=== PATIENT | female | born 1965 | race Caucasian/White ===

== ENCOUNTER 2020-04-24 12:14 | Emergency (ER) | payer MEDICAID, OTHER ==
--- NOTE | 2020-04-24 13:35 | EDM.PDOC ---
ED HPI GENERAL MEDICAL PROBLEM - General Chief Complaint: Lower Extremity Injury/Pain Stated Complaint: POSSIBLE BLOOD CLOT IN LEG Time Seen by Provider: 04/24/20 12:35 Source of Information: Reports: Patient, RN, RN Notes Reviewed History Limitations: Reports: No Limitations - History of Present Illness INITIAL COMMENTS - FREE TEXT/NARRATIVE: Had a LTK done 04/16/[address] Elias at [facility]. Today pt. states she has been having "excruciating" pain that starts from both side of her calf and goes around to the front of her bazan. Hurts to even touch it. Called her Orthopedic office and was told to come in to be evaluated. Pt. states she is worried about a blood clot. Is on ellequis bid and has taken today, has not missed any doses. Does have redness to bazan that pt. states started 3 days ago. has had drainage from her incision and was evaluated 04/22/2020 in [place], a culture of drainage was taken. Is not on antibiotics. Has bruising knee and calf but pt. states it has not worsened. Onset: Gradual Duration: Day(s): (4-5), Constant Location: Reports: Lower Extremity, Left Quality: Reports: Ache, Pressure, Throbbing Severity: Severe Improves with: Reports: None Worsens with: Reports: Movement Context: Reports: Other (Postoperative pain) Associated Symptoms: Reports: No Other Symptoms Left Lower Leg Pain Score (Numeric/FACES): 10 - Related Data Allergies Allergy/AdvReac Type Severity Reaction Status Date / Time adhesive Allergy Blisters Verified 04/24/20 12:33 cephalexin [From Keflex] Allergy Itching Verified 04/24/20 12:33 coconut Allergy Itching Verified 04/24/20 12:33 Past Medical History Musculoskeletal History: Reports: Osteoarthritis Endocrine/Metabolic History: Reports: Obesity/BMI 30+ - Past Surgical History Musculoskeletal Surgical History: Reports: Knee Replacement (Left), Other (See Below) (Left knee surgery x2 prior to TKR.) Social & Family History - Family History Family Medical History: Noncontributory - Living Situation & Occupation Living situation: Reports: with Family Review of Systems - Review of Systems Review Of Systems: Comprehensive ROS is negative, except as noted in HPI. ED EXAM, GENERAL - Physical Exam Exam: See Below Exam Limited By: No Limitations General Appearance: Alert, WD/WN, No Apparent Distress, Obese Respiratory/Chest: No Respiratory Distress, Lungs Clear, Normal Breath Sounds, No Accessory Muscle Use, Chest Non-Tender Cardiovascular: Normal Peripheral Pulses, Regular Rate, Rhythm Extremities: Joint Swelling (Left knee incision is clean and dry, bulla that appears to be a reaction to the adhesive from the dressing is present, the bulla are intact with clear fluid. Left knee tender with postoperative swelling and bruising to the proximal ankle. There is erythema to the anterior bazan.), Limited Range of Motion (Left knee, as expected postoperatively) Neurological: Alert, Oriented, No Motor/Sensory Deficits Psychiatric: Normal Mood Course - Vital Signs Last Recorded V/S: Last Vital Signs Temp 97 F 04/24/20 12:26 Pulse 93 04/24/20 12:26 Resp 16 04/24/20 12:26 BP 122/48 L 04/24/20 12: Pulse Ox 95 04/24/20 12:26 - Orders/Labs/Meds Labs: Laboratory Tests 04/24/20 Range/Units 13:35 WBC 10.7 H (5.0-10.0) 10^3/uL RBC 4.19 L (4.2-5.4) 10^6/uL Hgb 12.7 (12.0-16.0) g/dL Hct 39.1 (37.0-47.0) % MCV 93.3 (80-100) fL MCH 30.3 (27.0-34.0) pg MCHC 32.5 L (33.0-35.0) g/dL Plt Count 361 (150-450) 10^3/uL Neut % (Auto) 73.1 (42.2-75.2) % Lymph % (Auto) 15.1 L (20.5-50.1) % Chase % (Auto) 7.9 (2-8) % Eos % (Auto) 3.6 H (1.0-3.0) % Baso % (Auto) 0.3 (0.0-1.0) % - Radiology Interpretation Free Text/Narrative:: US Left Lower extremity venous doppler: no DVT, postoperative fluid/hematoma, see Rad. report. Departure - Departure Time of Disposition: 13:53 Disposition: Home, Self-Care 01 Condition: Good Clinical Impression: Postoperative pain of left knee - Discharge Information *PRESCRIPTION DRUG MONITORING PROGRAM REVIEWED*: Not Applicable *COPY OF PRESCRIPTION DRUG MONITORING REPORT IN PATIENT NUBIA: Not Applicable Instructions: Total Knee Replacement, Care After, [id number] Forms: ED Department Discharge Additional Instructions: Continue to follow your surgical discharge instructions. Follow up with your surgeon April 29. Call or follow up sooner if pain increases, redness increased, drainage returns, or if you develop a fever. Sepsis Event Note (ED) - Evaluation Sepsis Screening Result: No Definite Risk - Focused Exam Vital Signs: Vital Signs Temp Pulse Resp BP Pulse Ox 04/24/20 12:26 97 F 93 16 122/48 L 95
--- NOTE | 2020-04-24 14:12 | US ---
EXAMINATION: Venous Doppler lower Ext Lt SEX: Female AGE: 54 years CLINICAL HISTORY: 54-year-old female with redness and "blistering" left knee following total knee replacement to May 04, 2020. Rule out DVT this obese patient with swollen leg (on anticoagulant). INTERPRETATION: Small avascular fluid collection near incisional site that may represent hematoma. Postoperative seroma? 3 cm inguinal lymph node left groin. No sign of intraluminal echogenic thrombus and normal compressibility deep veins of the left groin, thigh, knee and calf. Normal augmentation and venous waveforms demonstrated respectively in the popliteal vein behind the left knee, possibly in the femoral veins of the left thigh and groin. Superficial greater saphenous vein left lower extremity is patent. CONCLUSION: No current evidence DVT left lower extremity. Small (2.85 x 3.19 cm diameter) avascular hematoma or seroma near the incision. Left inguinal node.
== END 2020-04-24 14:03 | disposition home or self-care (01) ==
LOC: DL.ED 12:14
DX: G89.18 Other acute postprocedural pain (principal); E66.9 Obesity, unspecified; Z68.42 Body mass index [BMI] 45.0-49.9, adult; Z91.048 Other nonmedicinal substance allergy status; Z88.1 Allergy status to other antibiotic agents; Z91.018 Allergy to other foods; Z79.01 Long term (current) use of anticoagulants
CPT/HCPCS: 36415; 85025; 93971; 99284-25